=== PATIENT | female | born 1965 | race African-American/Black ===

== ENCOUNTER 2019-01-01 16:33 | Emergency (ER) | payer OTHER ==
[~2019-01-01] VITALS: Ht 160 cm; Wt 76.2 kg
[2019-01-01 16:42] VITALS: BP_SYST 147
[2019-01-01] MEDS ORDERED: KETOROLAC TROMETHAMINE 60 MG/2 ML VIAL IM ONE (17:15)
[2019-01-01 18:30] VITALS: BP_SYST 135
== END 2019-01-01 18:30 | disposition home or self-care (01) ==
LOC: SED 16:33
DX: G56.03 Carpal tunnel syndrome, bilateral upper limbs (principal); M54.41 Lumbago with sciatica, right side; R03.0 Elevated blood-pressure reading, without diagnosis of hypertension
CPT/HCPCS: 29125; 81002; 81025; 96372; 99283; J1885